=== PATIENT | male | born 1945 | race Caucasian/White ===

== ENCOUNTER → 2023-12-07 07:38 | Outpatient (REF) | payer MEDICARE, SELFPAY | LOC: HWRAD 07:38 | PROVIDERS: ATTENDING PHYSICIAN Physician Assistant; FAMILY PHYSICIAN Internal Medicine | DX: E04.2 Nontoxic multinodular goiter (principal) | CPT/HCPCS: 76536 ==

== ENCOUNTER → 2025-01-09 13:46 | Outpatient (REF) | payer MEDICARE, SELFPAY | LOC: RAD 13:46 | PROVIDERS: ATTENDING PHYSICIAN Physician Assistant; FAMILY PHYSICIAN Internal Medicine | DX: E04.2 Nontoxic multinodular goiter (principal) | CPT/HCPCS: 76536 ==